=== PATIENT | male | born 1940 | race Caucasian/White ===

== ENCOUNTER → 2016-05-19 | Outpatient (CLI) | payer MEDICARE, OTHER ==
[~2016-05-19] MED LIST: ARICEPT10 MG PO; ASPIRIN325 MG PO; CELEXA20 MG PO; CYMBALTA60 MG PO; FERROUS SULFAT325 M1 PO; LIPITOR40 MG PO; MEMANTINE HCL10 MG PO; NEURONTIN300 MG PO; NORVASC5 MG PO; PROTONIX40 MG PO; REMERON15 MG PO; VITAMIN B-121000 MCG PO
== END | disposition short-term general hospital (02) ==
LOC: CLPAIN 10:29
DX: R10.32 Left lower quadrant pain (principal); R10.12 Left upper quadrant pain; G89.29 Other chronic pain

== ENCOUNTER 2016-07-09 06:06 | Emergency (ER) | payer MEDICARE, OTHER ==
[~2016-07-09] VITALS: Ht 180.3 cm; Wt 73.9 kg
[~2016-07-09 06:06] MED LIST changes: -CYMBALTA60 MG PO; -FERROUS SULFAT325 M1 PO; -LIPITOR40 MG PO; -MEMANTINE HCL10 MG PO; -NEURONTIN300 MG PO; -REMERON15 MG PO
[2016-07-09] MEDS ORDERED: LIPITOR40 MG PO (06:38)
[2016-07-09] MEDS ORDERED: FERROUS SULFAT325 M1 PO (06:39)
[2016-07-09] MEDS ORDERED: CYMBALTA60 MG PO (06:39)
[2016-07-09] MEDS ORDERED: MEMANTINE HCL10 MG PO (06:40)
[2016-07-09] MEDS ORDERED: NEURONTIN300 MG PO (06:40)
[2016-07-09] MEDS ORDERED: PROTONIX40 MG PO (06:41)
[2016-07-09] MEDS ORDERED: REMERON15 MG PO (06:41)
== END 2016-07-09 09:15 | disposition short-term general hospital (02) ==
LOC: ER 06:06
DX: R33.9 Retention of urine, unspecified (principal); D64.9 Anemia, unspecified; K59.00 Constipation, unspecified; F03.90 Unspecified dementia, unspecified severity, without behavioral disturbance, psychotic disturbance, mood disturbance, and anxiety; F32.9 Major depressive disorder, single episode, unspecified; K21.9 Gastro-esophageal reflux disease without esophagitis; E78.5 Hyperlipidemia, unspecified; Z79.899 Other long term (current) drug therapy

== ENCOUNTER → 2016-07-25 | Outpatient (CLI) | payer MEDICARE, OTHER ==
[~2016-07-25] MED LIST changes: +CYMBALTA60 MG PO; +FERROUS SULFAT325 M1 PO; +LIPITOR40 MG PO; +MEMANTINE HCL10 MG PO; +NEURONTIN300 MG PO; +REMERON15 MG PO
== END | disposition short-term general hospital (02) ==
LOC: CLCARD 06-09 08:18 → CLUROL 14:01 → CLCARD 14:01
DX: R33.9 Retention of urine, unspecified (principal)